=== PATIENT | male | born 1965 | race American Indian/Alaskan Native ===

== ENCOUNTER 2017-09-21 12:29 | Emergency (ER) | payer SELFPAY ==
[2017-09-21 12:59] VITALS: BP 201/105
[2017-09-21] MEDS ORDERED: ASPIRIN PO ONE (12:59)
[2017-09-21 13:41] LABS: Basophils # (Auto) 0.1 K/mm3 (0.0-0.1); Basophils % (Auto) 0.9 % (0.0-1.8); Eosinophils # (Auto) 0.1 K/mm3 (0.0-0.4); Eosinophils % (Auto) 1.4 % (0.0-4.3); Hematocrit 39.7 % (35.5-45.6); Hemoglobin 13.9 gm/dl (11.8-15.2); Lymphocytes # (Auto) 1.9 K/mm3 (1.2-5.4); Lymphocytes % (Auto) 26.5 % (13.4-35.0); Mean Corpuscular HGB Conc 35 % (32-34); Mean Corpuscular Hemoglobin 30 pg (28-32); Mean Corpuscular Volume 85 fl (84-94); Monocytes # (Auto) 0.8 K/mm3 (0.0-0.8); Monocytes % (Auto) 11.3 % (0.0-7.3); Platelet Count 274 K/mm3 (140-440); Red Blood Count 4.66 M/mm3 (3.65-5.03); Red Cell Distribution Width 14.2 % (13.2-15.2)
[2017-09-21 13:53] LABS: BUN/Creatinine Ratio 15; Blood Urea Nitrogen 15 mg/dL (9-20); Calcium 9.1 mg/dL (8.4-10.2); Hemolysis Index 1
== END 2017-09-21 21:30 | disposition left against medical advice (07) ==
LOC: ED 12:29
DX: R07.9 Chest pain, unspecified (principal); Z53.21 Procedure and treatment not carried out due to patient leaving prior to being seen by health care provider
CPT/HCPCS: 36415; 80048; 83735; 84484; 85025; 93005; 93010

== ENCOUNTER 2017-10-26 08:19 | Day surgery (SDC) | payer MEDICAID ==
[2017-10-26] MEDS ORDERED: ECOTRIN PO ONE (08:41)
[2017-10-26] MEDS ORDERED: NACL 0.9% 500 ML 500 ML IV SCH (09:00)
[2017-10-26 09:08] LABS: Basophils # (Auto) 0.1 K/mm3 (0.0-0.1); Basophils % (Auto) 1.4 % (0.0-1.8); Eosinophils # (Auto) 0.1 K/mm3 (0.0-0.4); Eosinophils % (Auto) 1.7 % (0.0-4.3); Hematocrit 38.1 % (35.5-45.6); Mean Corpuscular HGB Conc 34 % (32-34); Mean Corpuscular Hemoglobin 30 pg (28-32); Mean Corpuscular Volume 88 fl (84-94); Monocytes # (Auto) 0.6 K/mm3 (0.0-0.8); Monocytes % (Auto) 8.9 % (0.0-7.3); Platelet Count 286 K/mm3 (140-440); Red Blood Count 4.34 M/mm3 (3.65-5.03); Red Cell Distribution Width 14.2 % (13.2-15.2)
[2017-10-26 09:18] LABS: INR 0.98 (0.87-1.13)
[2017-10-26] MEDS ORDERED: BENADRYL IV ONE (09:42)
[2017-10-26] MEDS ORDERED: PEPCID IV ONE (09:42)
[2017-10-26 09:52] LABS: BUN/Creatinine Ratio 12; Blood Urea Nitrogen 13 mg/dL (9-20); Calcium 8.9 mg/dL (8.4-10.2); Hemolysis Index 4
[2017-10-26] MEDS ORDERED: CALAN ONE (10:28)
[2017-10-26] MEDS ORDERED: XYLOCAINE 2% INFILTRATI ONE (10:28)
[2017-10-26] MEDS ORDERED: HEPARIN/NS 5000 UNIT/500ML(CATH LAB) 1,000 ML IR ONE (10:28)
[2017-10-26] MEDS ORDERED: HEPARIN 10,000 UNITS/10 ML ONE (10:28)
[2017-10-26] MEDS ORDERED: NITROGLYCERIN SYRINGE 3 ML ONE (10:29)
[2017-10-26] MEDS ORDERED: VERSED ONE (10:29)
[2017-10-26] MEDS: SUBLIMAZE ONE ×2 (11:03→11:04)
--- NOTE | 2017-10-26 11:29 | Short Stay Summary ---
Short Stay Documentation Date of service: 10/26/17 - History H&P: obtained from office - Allergies and Medications Current Medications: Allergies milk Adverse Reaction (Verified 10/26/17 08:51) Diarrhea seafood Allergy (Uncoded 10/26/17 08:35) Rash Home Medications Medication Instructions Recorded Confirmed Last Taken Type ALBUTEROL Inhaler [ProAir HFA 2 puff IH QID PRN #1 inhalation 03/20/14 10/26/17 10/25/17 Rx Inhaler] 2 Aspirin [Aspirin EC] 325 mg PO DAILY 10/26/17 10/26/17 10/26/17 History 325mg Hydrochlorothiazide [HCTZ] 25 mg PO DAILY 10/26/17 10/26/17 10/25/17 History 25mg Metoprolol SUCCINATE ER TAB 50 mg PO DAILY 10/26/17 10/26/17 10/25/17 History 50mg amLODIPine [Norvasc] 10 mg PO DAILY 10/26/17 10/26/17 10/25/17 History 10mg Active Medications Sodium Chloride (Nacl 0.9% 500 Ml) 500 mls @ 50 mls/hr IV DIRECT YESENIA Stop: 10/26/17 18:59 Last Admin: 10/26/17 09:02 Dose: 50 mls/hr Short Stay Discharge Plan Follow up with: BEBA JAVIER MD [Primary Care Provider] - 7 Days
--- NOTE | 2017-10-26 12:46 | Cardiac Catherization Report ---
CARDIAC CATHETERIZATION REQUESTING PHYSICIAN: ____ INDICATION FOR PROCEDURE: The patient is a pleasant 52-year-old -[place] gentleman who is referred here for persistent chest pain, abnormal nuclear stress test, family history of heart disease, hypertension, and aortic insufficiency, already on calcium channel ann marie and beta ann marie as well as aspirin. Due to abnormal stress test, he is referred for left heart catheterization. Risks, benefits, and potential alternatives explained at length prior to obtaining informed consent. He also has significant hypertension. PROCEDURE IN DETAIL: The patient was brought to the laborer landscape in a postabsorptive state, prepped was prepped in sterile fashion. Mejia test in right hand was normal. A 2 mL of 2% lidocaine used to anesthetize the right wrist. A standard 6-Maldivian hydrophilic sheath used to cannulate the right radial artery via modified Seldinger technique. All exchanges performed to exchange a J-tip guidewire. JL3.5 catheter used to engage the left main. No dampening or ventricularization. Cineangiography performed in multiple projections. JR4 catheter used to cross the aortic valve under fluoroscopic guidance. Left ventriculography performed in 30-degree POLLOCK and 30-degree PERUVIAN projections via hand injections, catheter flushed. Manual pullback performed with continuous pressure monitoring. Next, catheter used to engage the right coronary. No dampening or ventricularization. Cineangiography performed in multiple projections. Due to due to hypertension and chest pain, I proceeded with root aortography with a power injector in the PERUVIAN projection. Next, catheter removed from the body of wire, sheath removed. Manual pressure used to achieve hemostasis. I directly supervised the administration of moderate sedation with fentanyl/ versed for 30min. DATA: Aortic pressure is 160/90, LV pressure is 160. LVP of 20 mmHg. Left ventriculography revealed normal systolic performance with estimated ejection fraction 60-65%. No evidence of aortic stenosis. CORONARY ANATOMY: This is a left dominant system. Right coronary is small and nondominant. Left main is short. No significant disease, bifurcates left anterior descending and left circumflex. Left circumflex is a large vessel, gives off a large OM trunk. Left PDA, no significant disease. LAD is a moderate sized vessel, courses anterior intergroove, wraps around the apex. Mild scattered luminal irregularities, maximal narrowing of 10-20% in the proximal LAD. Root aortography reveals normal contour, normal grade vessel anatomy. No evidence of significant aortic insufficiency. No penetrating aortic ulcer or dissection noted. CONCLUSIONS: 1. Mild nonobstructive disease with a 10-20% proximal LAD stenosis. 2. Mild nonobstructive coronary disease in this left dominant system with a maximal narrowing of approximately 10-20% in the proximal LAD. 3. Normal left ventricular systolic performance, estimated ejection fraction of 55%-60%. No evidence of aortic stenosis. 4. Root aortography without evidence of dissection, patent penetrating ulcer or aortic insufficiency. At this point, recommend aggressive risk factor modification. Consider starting statin therapy. Continue aspirin therapy. Follow up with Dr. Pickett in the office. Standard radial care. Results of the procedure explained to the patient and his fiancee. All questions and concerns were addressed. JOB# [id number] SCARLETT/CARIN AGRAWAL
[2017-10-26 13:19] VITALS: BP 148/84
== END 2017-10-26 13:30 | disposition home or self-care (01) ==
LOC: CATHLABREC 08:19
PROVIDERS: ATTEND Internal Medicine
DX: I25.10 Atherosclerotic heart disease of native coronary artery without angina pectoris (principal); I10 Essential (primary) hypertension; E78.5 Hyperlipidemia, unspecified; E66.9 Obesity, unspecified; Z68.38 Body mass index [BMI] 38.0-38.9, adult; Z91.011 Allergy to milk products; Z91.013 Allergy to seafood; Z79.82 Long term (current) use of aspirin; Z79.899 Other long term (current) drug therapy; Z82.49 Family history of ischemic heart disease and other diseases of the circulatory system
CPT/HCPCS: 36415; 80048; 85025; 85610; 85730; 93005; 93010; 93458; 93567; 96374; 96375; 99156; C1894; J1200; J1644; J2250; J2930; J3010; J7040; Q9967